=== PATIENT | male | born 1990 | race Caucasian/White ===

== ENCOUNTER 2019-03-11 14:55 | Emergency (ER) | payer OTHER ==
[~2019-03-11] VITALS: Ht 172.7 cm; Wt 85.9 kg
[2019-03-11] MEDS ORDERED: DERMABOND TOPICAL SKIN ADHESIVE TOP ONE (16:45)
[2019-03-11] MEDS ORDERED: IBUPROFEN 800 MG TAB PO ONE (17:00)
--- NOTE | 2019-03-11 17:39 | REP ---
Orbital radiographs. History: Left supraorbital tenderness to palpation with laceration. Findings: Bony orbital margins are intact. Paranasal sinus margins are intact. The nasal bone is intact. No orbital or facial fractures seen. No mandibular fracture noted. Impression: Negative radiographs of the orbits and facial bones. Electronically Signed by Efraín Palomares MD 03/11/2019 05:31 P
[2019-03-11 17:47] VITALS: BP 164/83
== END 2019-03-11 17:49 | disposition home or self-care (01) ==
LOC: M ED 14:55
DX: S01.112A Laceration without foreign body of left eyelid and periocular area, initial encounter (principal); W22.8XXA Striking against or struck by other objects, initial encounter; Y92.89 Other specified places as the place of occurrence of the external cause; Y99.0 Civilian activity done for income or pay; F17.210 Nicotine dependence, cigarettes, uncomplicated